=== PATIENT | female | born 1955 | race Caucasian/White ===

== ENCOUNTER 2016-07-13 22:44 | Emergency (ER) | payer SELFPAY | END 2016-07-14 00:07 | disposition home or self-care (01) | LOC: ER 22:44 | DX: E10.649 Type 1 diabetes mellitus with hypoglycemia without coma (principal); R11.0 Nausea; R53.1 Weakness; R42 Dizziness and giddiness; F41.9 Anxiety disorder, unspecified; F17.210 Nicotine dependence, cigarettes, uncomplicated; Z90.710 Acquired absence of both cervix and uterus; Z90.49 Acquired absence of other specified parts of digestive tract; Z79.82 Long term (current) use of aspirin; Z79.899 Other long term (current) drug therapy; Z88.1 Allergy status to other antibiotic agents | CPT/HCPCS: 36415 ==